=== PATIENT | female | born 1975 | race Caucasian/White ===

== ENCOUNTER 2017-03-16 06:27 | Observation (INO) ==
[2017-03-16] MEDS ORDERED: CeFAZolin Syr 2,000MG/20 ML 2,000 MG/20 ML SYRINGE IVPB ONE (07:03)
--- NOTE | 2017-03-16 07:03 | Anesthesia Evaluation PreOp ---
Date of Encounter: 03/16/17 Time of Encounter: 07:00 - Past History Planned Operation: LAVH Cardiac History: Denies any Significant Hx, Hyperlipidemia Pulmonary History: Denies Any Significant HX ANTIQUE REFINISHER History: Denies Any Significant HX Other Medical History: GERD, Other (IBS, endometriosis) Anesthesia History: No Prior Anesthetic Complications, Past Anesthesia (tubal, laparoscopy, tonsillectomy, nasal sx) : No Test: Negative (03/11/2107) Alcohol Use: none Drug use: none Medications and Allergies Diclofenac Potassium 50 mg PO Q8H 03/29/15 [History] Krill Oil 1,000 mg PO DAILY 03/29/15 [History] Rosuvastatin [Crestor] 40 mg PO QPM 03/29/15 [History] 3 Allergy/AdvReac Type Severity Reaction Status Date / Time No Known Allergies Allergy Verified 03/11/17 15:35 - Meds/Allergy Pre-op Review Medications Reviewed: Yes Allergies Reviewed: Yes Beta Blockers on Current Med List: No Anesthesia Results - Labs Laboratory Tests 03/26/15 03/11/17 03/11/17 15:15 15:43 15:43 WBC 8.9 Hgb 13.2 Hct 39.4 Plt Count 285 BUN 15 Creatinine 0.89 Serum , Qual 03/11/17 15:43 WBC Hgb Hct Plt Count BUN Creatinine Serum , Qual Negative Anesthesia Exam O2 Sat Height 1.61 m Height 1.61 m Weight 83.915 kg Weight 83.915 kg O2 Sat by Pulse Oximetry 95 Vital Signs Temp Pulse Resp BP Pulse Ox 98.0 F 67 18 121/83 95 03/16/17 06:49 03/16/17 06:49 03/16/17 06:49 03/16/17 06:49 03/16/17 06:49 Height: 5'3'' Weight: 185# NPO (# of Hours): > 8 hrs Pain Scale: 0 Pain Scale Used: Numeric (1 - 10) - HEENT Pupil (Motor): Pupils equal, EOMI Mallampati: I Teeth: Normal Oral Opening: Greater than 3 - ANTIQUE REFINISHER LOC: Oriented ANTIQUE REFINISHER Motor: Normal RUE, Normal LUE, Normal RLE, Normal LLE, Normal Face ANTIQUE REFINISHER Sensory: Normal: RUE, LUE, RLE, LLE, Face - Cardiac Rhythm: Regular Murmur: None JVD: No Carotid Bruit: No - Pulmonary Breath Sounds: bilateral Clear Respiratory Effort: Symmetrical Anesthesia Assess/Plan ASA Score: 2 Modified [place] Scale for Level of Consciousness: Cooperative, oriented, and tranquil Anesthetic Plan: General, Regional (Spoinal for post op pain control) Autologous Blood: Yes Monitoring Plan: Standard Monitors Recovery Plan: PACU
[2017-03-16] MEDS ORDERED: Lidocaine -MPF 2% 2 ML VIAL ONE (07:12)
[2017-03-16] MEDS ORDERED: *HR* Propofol 200 MG/20 ML VIAL IVP ONE (07:12)
[2017-03-16] MEDS ORDERED: *HR* FentaNYL (PF) 100 MCG/2 ML VIAL ONE (07:12)
[2017-03-16] MEDS ORDERED: *HR* Midazolam HCl 2 MG/2 ML VIAL ONE (07:12)
[2017-03-16] MEDS ORDERED: *HR* Rocuronium Bromide 50 MG/5 ML VIAL ONE (07:12)
[2017-03-16] MEDS ORDERED: Plasma-Lyte A (PH 7.4) 1,000 ML IVC SCH (07:15)
--- NOTE | 2017-03-16 07:29 | History & Physical Report ---
Date of Encounter: 03/16/17 Time of Encounter: 07:28 24 Hour HP Update - Instructions Instructions: If the History and Physical is less than 30 days old and was completed prior to A.M. admission and or procedure and has NOT been updated on calendar day of procedure please complete this update prior to performing procedure. - Update Patient reports changes in Medical Condition: No Changes in examination, assessment, or condition: No Changes in Medication: No Preop tests/diagnostics Reviewed: Yes Surgery Remains Indicated: Yes Consent for Planned Operative Procedure(s) Verified: Yes - Pre-Operative Checklist Preoperative Checklist Indicated: Yes Prophylactic Antibiotic Ordered: Yes Home Medications Include Beta Cori: No Beta Cori Taken Today (Day of Surgery): No Beta Cori Taken Yesterday (Day Prior to Surgery): No Is VTE Prophylaxis Indicated?: Yes - Attending Attestation marielos quintero md [facility]
[2017-03-16] MEDS ORDERED: Bupivacaine-MPF 0.25% 10 ML VIAL ONE (07:31)
[2017-03-16] MEDS ORDERED: *HR* Belladonna Alkaloids/Opium 30 MG RECTAL SUPPOSITORY RC ONE (07:32)
[2017-03-16] MEDS ORDERED: *HR* Morphine Sulfate/PF 10 MG/10 ML AMPUL ONE (07:34)
[2017-03-16] MEDS ORDERED: Dexamethasone 4 MG/ML VIAL ONE (08:07)
[2017-03-16] MEDS ORDERED: Ondansetron 4 MG/2 ML VIAL ONE (08:07)
[2017-03-16] MEDS ORDERED: Ondansetron 4 MG/2 ML VIAL IVP ONE (08:12)
[2017-03-16] MEDS ORDERED: *HR* HYDROmorphone (PF) 1 MG/ML SYRINGE IVP PRN (08:12)
[2017-03-16] MEDS ORDERED: *HR* Promethazine 25 MG/ML VIAL IVP PRN (08:12)
[2017-03-16] MEDS ORDERED: Ketorolac 30 MG/ML VIAL ONE (09:39)
--- NOTE | 2017-03-16 10:15 | OB/GYN Procedure Note ---
Hysterectomy - Diagnosis Date of procedure: 03/16/17 Hysterectomy pre-op: chronic pelvic pain (Adenomyosis) Post-op diagnosis: same - Procedure Hysterectomy procedure: lap assisted vaginal hysterectomy, bilateral salpingectomy Surgeon: Santino Martinez Community Recreation Programmer: Debra Baron Anesthesia provider: Tutu Plummer Anesthesia Type: General (Intrathecal) Estimated blood loss (cc): 250 Complications: none Fluids: crystalloid Urine output (cc): 500 Specimens: uterus, cervix, right fallopian tube, left fallopian tube Findings: The uterus was enlarged 6-8 weeks size consistent with adenomyosis. No endometriosis was noted on the ovaries Disposition: PACU Narrative: Patient was taken to the operating room. After satisfactory anesthesia was achieved patient placed in dorsolithotomy position, Younger catheter inserted, and prepped and draped in usual manner. After appropriate timeout, anterior lip cervix was grasped with single-tooth tenaculum. Perry cannula was inserted. Pneumoperitoneum was created. Trochars were inserted. Fallopian tubes were resected and sent to pathology for analysis. Round ligaments were coagulated both sides and cut. Cardinal ligaments coagulate both sides and cut. Uterine arteries were coagulated on both sides. The bladder flap was created anteriorly. We then went below. Cervical mucosa was injected with Marcaine solution. Cervical mucosa was incised circumferentially. Posterior cul-de-sac was entered. Uterosacral ligaments were clamped cut suture-ligated with a 0 Monocryl. The remainder of the cardinal ligaments were coagulated on both sides and cut. Anterior cul-de-sac was entered. Uterus and cervix were removed and sent to pathology for analysis. Posterior cuff was closed with 0 Monocryl left and right right left exiting at the uterosacral ligaments. After assurance of hemostasis, the vaginal cuff was reapproximated with a 0 Monocryl. We then went above. The cul-de-sac and sidewalls were thoroughly irrigated. Ureters noted coursing along the pelvic sidewall on the right side. There was some oozing from the bladder pillar on the left side. This area was controlled with bipolar device and Surgi-neva was placed. After assurance of hemostasis, the gas and trochars were removed. Incisions were closed with 3-0 Monocryl in a subcuticular manner. Sterile dressing was applied. The cuff was inspected and no bleeding was appreciated. The catheter was removed. Patient did well and was taken to recovery in satisfactory condition. Counts were correct.
--- NOTE | 2017-03-16 10:57 | Anesthesia Evaluation Post Op ---
Date of Encounter: 03/16/17 Time of Encounter: 10:50 - Lungs Lungs: Clear Ascult./Percussion - Airway Airway: Non-obstructed - Cardiovascular Regular Rate, Baseline Rhythm - Mental Status Mental Status: Alert & Oriented, Answers Appropriately - Pain Pain Scale: 3 Pain Scale used: Numeric (1 - 10) - Nausea Vomiting Nausea Vomiting: Not Present - Hydration Hydration: Tolerates oral liquids, Ice chips, Has not voided Notes: 03/16/17 10:56 continuos pulse ox monitoring - Discharge PostOp Status: Transfer Patient to floor
[2017-03-16] MEDS ORDERED: Naloxone 0.4 MG/ML INJ IVP PRN (12:57)
[2017-03-16] MEDS ORDERED: Ondansetron 4 MG/2 ML VIAL IVP PRN (12:57)
[2017-03-16] MEDS ORDERED: *HR* HYDROcodone/Acet 5/325 mg TABLET PO PRN (12:57)
[2017-03-16] MEDS ORDERED: Sennosides 8.6 MG TABLET PO PRN (12:57)
[2017-03-16] MEDS ORDERED: *HR* OxyCODONE/APAP 5/325 TABLET PO PRN (12:57)
[2017-03-16] MEDS ORDERED: Ringers Solution, Lactated 1,000 ML ONE (16:02)
[2017-03-16] MEDS: Ondansetron 4 MG/2 ML VIAL IVP SCH (19:58)
[2017-03-17] MEDS ORDERED: Ringers Solution, Lactated 1,000 ML ONE (02:41)
[2017-03-17] MEDS: Ondansetron 4 MG/2 ML VIAL IVP SCH (02:47)
[2017-03-17] MEDS ORDERED: *HR* HYDROmorphone (PF) 1 MG/ML SYRINGE IVP PRN (03:06)
[2017-03-17] MEDS ORDERED: *HR* Promethazine 25 MG/ML VIAL IVP ONE (03:06)
[2017-03-17] MEDS ORDERED: Scopolamine Patch 1.5 MG PATCH.TD72 TD ONE (03:08)
[2017-03-17] MEDS: Ketorolac 30 MG/ML VIAL IVP SCH ×3 (03:28→20:51)
[2017-03-17 04:42] LABS: Basophils % 0.1 %; Hematocrit 36.9 % (35.3-44.9); Immature Granulocytes % 0.7 % (0-4); Lymphocytes # 1.5 K/mcL (0.6-4.6); Lymphocytes % 9.8 %; Mean Corpuscular HGB Conc 32.5 g/dL (31.6-35.5); Mean Corpuscular Hemoglobin 28.2 pg (28.0-33.3); Mean Corpuscular Volume 86.8 fL (83.0-100.0); Mean Platelet Volume 9.3 fL (9.4-12.4); Monocytes # 0.9 K/mcL (0.0-1.3); Monocytes % 6.3 %; Neutrophils # 12.3 K/mcL (1.6-8.9); Platelet Count 262 K/mcL (140-400); Red Blood Count 4.25 M/mcL (3.82-4.97); Red Cell Distribution Width 13.2 % (11.5-14.5); Segmented Neutrophils % 83.1 %
[2017-03-17 05:00] LABS: eGFR For African Americans > 60 (> 60); eGFR For Non-African Americans > 60 (> 60)
[2017-03-17] MEDS ORDERED: Ringers Solution, Lactated 500 ML IVC ONE (08:15)
--- NOTE | 2017-03-17 08:20 | OB/GYN Progress Note ---
Date of Encounter: 03/17/17 Time of Encounter: 08:15 - Assessment and Plan (1) Uterus, adenomyosis Current Visit: Yes Status: Resolved (2) Vomiting Current Visit: Yes Status: Acute Patient has been vomiting overnight . Better with scolpolomine patch . Bowel sounds dimished . Labs ok . Will fliud bolus / recheck labs Qualifiers: Vomiting type: cyclical vomiting Vomiting Intractability: non-intractable Nausea presence: with nausea Qualified Code(s): G43.A0 - Cyclical vomiting, not intractable Subjective - Subjective Patient reports: voiding normally, pain well controlled, appetite poor, nauseated Objective - Vital Signs Latest vital signs: Vital Signs Temp Pulse Resp BP Pulse Ox 03/17/17 07:30 99.0 F 83 16 108/69 95 03/17/17 03:05 98.4 F 88 16 145/96 94 03/16/17 23:28 98.2 F 99 14 123/77 94 03/16/17 19:45 98.4 F 97 14 129/84 90 03/16/17 14:30 98.0 F 89 16 127/89 94 03/16/17 13:15 97.9 F 82 16 148/77 94 03/16/17 12:15 97.6 F 81 16 128/84 92 03/16/17 11:45 97.6 F 86 16 114/73 92 03/16/17 11:15 98.0 F 87 14 117/77 93 03/16/17 11:01 99.6 F 85 17 124/80 94 03/16/17 10:51 99.6 F 79 16 126/80 96 03/16/17 10:41 92 16 120/79 96 03/16/17 10:31 82 16 120/80 94 03/16/17 10:21 98.4 F 88 16 143/90 97 Intake and Output 03/16/17 03/17/17 03/17/17 23:59 07:59 15:59 Intake Total 200 / 200 Output Total 950 / 950 700 / 700 Balance -950 / -950 -500 / -500 Intake: Oral 200 / 200 Output: Urine 300 / 300 600 / 600 Emesis 650 / 650 100 / 100 Other: Weight 83.915 kg Patient Weight 03/17/17 23:59 Weight 83.915 kg - I&O's I&O's: Intake & Output 03/14/17 03/15/17 03/16/17 03/17/17 23:59 23:59 23:59 23:59 Intake Total 200 / 200 Output Total 2150 / 2150 700 / 700 Balance -2130 / -2130 -500 / -500 Weight 82.6 kg 83.915 kg - Exam Lungs: bilateral: normal Chest: Normal S1, Normal S2 Extremities: Present: normal Abdomen: Present: normal appearance, soft Incision OB: Present: normal, intact - Labs Labs: Abnormal lab results WBC 14.8 K/mcL (4.3-11.1) H D 03/17/17 04:08 MPV 9.3 fL (9.4-12.4) L 03/17/17 04:08 Neutrophils # 12.3 K/mcL (1.6-8.9) H 03/17/17 04:08 Consult Discharge Plan - Plan Referrals: NONE,PCP [Primary Care Provider] -
[2017-03-17] MEDS: Ringers Solution, Lactated 1,000 ML IVC SCH ×3 (08:26→21:13)
[2017-03-17 08:38] LABS: Basophils % 0.1 %; Hematocrit 33.3 % (35.3-44.9); Hemoglobin 11.1 g/dL (11.5-15.4); Immature Granulocytes % 0.8 % (0-4); Lymphocytes % 14.8 %; Mean Corpuscular HGB Conc 33.3 g/dL (31.6-35.5); Mean Corpuscular Hemoglobin 28.5 pg (28.0-33.3); Mean Corpuscular Volume 85.4 fL (83.0-100.0); Mean Platelet Volume 9.2 fL (9.4-12.4); Platelet Count 238 K/mcL (140-400); Red Cell Distribution Width 13.1 % (11.5-14.5); Segmented Neutrophils % 77.3 %
[2017-03-17 08:39] LABS: Lymphocytes # 2.1 K/mcL (0.6-4.6); Neutrophils # 11.2 K/mcL (1.6-8.9)
[2017-03-17 08:55] LABS: Potassium 4.1 mEq/L (3.5-4.5)
--- NOTE | 2017-03-17 15:21 | Event Note ---
Date of Encounter: 03/17/17 Time of Encounter: 15:16 Pt reports that she is very sleepy. Her nausea is improving. She was able to keep some broth and crackers down. She denies being in much pain. She reports that she is able to void, but no flatus yet. Denies other symptoms. EXAM: Lungs: CTAB Heart: RRR, S1 & S2 Abd: Soft, non-tender, non-distended, BSx4. Incision clean, dry, intact. PLAN: Admit as inpatient and continue to monitor Advance diet as tolerated, encourage ambulation Bladder scan if continued poor voiding Check labs in AM
[2017-03-18 04:38] LABS: Basophils % 0.1 %; Eosinophils % 0.2 %; Hematocrit 32.7 % (35.3-44.9); Hemoglobin 10.7 g/dL (11.5-15.4); Immature Granulocytes % 0.6 % (0-4); Lymphocytes # 3.4 K/mcL (0.6-4.6); Lymphocytes % 32.1 %; Mean Corpuscular HGB Conc 32.7 g/dL (31.6-35.5); Mean Corpuscular Hemoglobin 28.5 pg (28.0-33.3); Mean Platelet Volume 9.1 fL (9.4-12.4); Monocytes # 0.8 K/mcL (0.0-1.3); Monocytes % 7.4 %; Neutrophils # 6.3 K/mcL (1.6-8.9); Platelet Count 221 K/mcL (140-400); Red Blood Count 3.76 M/mcL (3.82-4.97); Red Cell Distribution Width 13.3 % (11.5-14.5); Segmented Neutrophils % 59.6 %
[2017-03-18 05:11] LABS: BUN/Creatinine Ratio 17 (6-26); Blood Urea Nitrogen 10 mg/dL (6-20); Carbon Dioxide 25 mEq/L (23-29); Chloride 109 mEq/L (98-107); Glucose 95 mg/dL (70-105); Osmolality,Calculated 289 (280-300); Potassium 3.4 mEq/L (3.5-5.1); Sodium 140 mEq/L (136-145); eGFR For African Americans > 60 (> 60); eGFR For Non-African Americans > 60 (> 60)
--- NOTE | 2017-03-18 08:16 | Discharge Summary ---
Date of Encounter: 03/18/17 Time of Encounter: 08:16 - Discharge Diagnosis (1) Uterus, adenomyosis Priority: Primary Status: Resolved Comments: POD#2 s/p lap assisted vaginal hysterectomy, bilateral salpingectomy Pain controlled, tolerating po intake, voiding well No flatus yet, but bowel sounds are present Pt may be discharged home (2) Vomiting Priority: Secondary Status: Acute Comments: N/V have improved compared to yesterday morning Continue to encourage po intake Qualifiers: Vomiting type: cyclical vomiting Vomiting Intractability: non-intractable Nausea presence: with nausea Qualified Code(s): G43.A0 - Cyclical vomiting, not intractable - Discharge Medications Prescriptions: OxyCODONE/APAP 5/325 [Percocet 5/325 MG] 1 each PO Q4HR PRN #20 tablet PRN Reason: Pain Ibuprofen [Motrin] 600 mg PO Q8HR PRN #60 tab PRN Reason: Pain Docusate [Colace] 100 mg PO BID #60 capsule Home Medications: Diclofenac Potassium 50 mg PO Q8H 03/29/15 [History] Krill Oil 1,000 mg PO DAILY 03/29/15 [History] Rosuvastatin [Crestor] 40 mg PO QPM 03/29/15 [History] Docusate [Colace] 100 mg PO BID #60 capsule 03/18/17 [Rx] Ibuprofen [Motrin] 600 mg PO Q8HR PRN #60 tab 03/18/17 [Rx] OxyCODONE/APAP 5/325 [Percocet 5/325 MG] 1 each PO Q4HR PRN #20 tablet 03/18/17 [Rx] Allergies/Adverse Reactions: 3 Allergy/AdvReac Type Severity Reaction Status Date / Time No Known Allergies Allergy Verified 03/11/17 15:35 Data Procedures and tests throughout hospitalization: Laboratory Tests 03/17/17 03/17/17 03/17/17 04:08 04:08 08:31 WBC 14.8 H D 14.4 H RBC 4.25 3.90 Hgb 12.0 11.1 L Hct 36.9 33.3 L MCV 86.8 85.4 MCH 28.2 28.5 MCHC 32.5 33.3 RDW 13.2 13.1 Plt Count 262 238 MPV 9.3 L 9.2 L Immature Gran % 0.7 0.8 Seg Neutrophils % 83.1 77.3 Lymphocytes % 9.8 14.8 Monocytes % 6.3 7.0 Eosinophils % 0.0 0.0 Basophils % 0.1 0.1 Neutrophils # 12.3 H 11.2 H Lymphocytes # 1.5 2.1 Monocytes # 0.9 1.0 Eosinophils # 0.0 0.0 Basophils # 0.0 0.0 Sodium Potassium Chloride Carbon Dioxide BUN Creatinine 0.66 Est GFR ( Amer) > 60 Est GFR (Non-Af Amer) > 60 BUN/Creatinine Ratio Glucose Calculated Osmolality Calcium 03/17/17 03/18/17 03/18/17 08:31 04:05 04:05 WBC 10.6 RBC 3.76 L Hgb 10.7 L Hct 32.7 L MCV 87.0 MCH 28.5 MCHC 32.7 RDW 13.3 Plt Count 221 MPV 9.1 L Immature Gran % 0.6 Seg Neutrophils % 59.6 Lymphocytes % 32.1 Monocytes % 7.4 Eosinophils % 0.2 Basophils % 0.1 Neutrophils # 6.3 Lymphocytes # 3.4 Monocytes # 0.8 Eosinophils # 0.0 Basophils # 0.0 Sodium 137 140 Potassium 4.1 3.4 L Chloride 104 109 H Carbon Dioxide 24 25 BUN 10 Creatinine 0.59 L Est GFR ( Amer) > 60 Est GFR (Non-Af Amer) > 60 BUN/Creatinine Ratio 17 Glucose 95 Calculated Osmolality 289 Calcium 8.0 L Labs on day of discharge: Labs from last 24 hours 03/18/17 03/18/17 03/17/17 04:05 04:05 08:31 WBC 10.6 RBC 3.76 L Hgb 10.7 L Hct 32.7 L MCV 87.0 MCH 28.5 MCHC 32.7 RDW 13.3 Plt Count 221 MPV 9.1 L Immature Gran % 0.6 Seg Neutrophils % 59.6 Lymphocytes % 32.1 Monocytes % 7.4 Eosinophils % 0.2 Basophils % 0.1 Neutrophils # 6.3 Lymphocytes # 3.4 Monocytes # 0.8 Eosinophils # 0.0 Basophils # 0.0 Sodium 140 137 Potassium 3.4 L 4.1 Chloride 109 H 104 Carbon Dioxide 25 24 BUN 10 Creatinine 0.59 L Est GFR ( Amer) > 60 Est GFR (Non-Af Amer) > 60 BUN/Creatinine Ratio 17 Glucose 95 Calculated Osmolality 289 Calcium 8.0 L 03/17/17 08:31 WBC 14.4 H RBC 3.90 Hgb 11.1 L Hct 33.3 L MCV 85.4 MCH 28.5 MCHC 33.3 RDW 13.1 Plt Count 238 MPV 9.2 L Immature Gran % 0.8 Seg Neutrophils % 77.3 Lymphocytes % 14.8 Monocytes % 7.0 Eosinophils % 0.0 Basophils % 0.1 Neutrophils # 11.2 H Lymphocytes # 2.1 Monocytes # 1.0 Eosinophils # 0.0 Basophils # 0.0 Sodium Potassium Chloride Carbon Dioxide BUN Creatinine Est GFR ( Amer) Est GFR (Non-Af Amer) BUN/Creatinine Ratio Glucose Calculated Osmolality Calcium Primary care physician: PCP RADHA Discharging clinician: Aleksandr Baca Anticipated date of discharge: 03/18/17 - Patient Status Disposition: Home, Self-Care Condition: Good Functional capacity at discharge: independent ambulation Overall status at discharge: patient is progressing back to baseline - Discharge Instructions Follow Up With: RADHA,PCP [Primary Care Provider] - Santino Martinez MD [Partnered Physician] - Additional Instructions: Take your medications as prescribed Drink plenty of fluids Continue to increase food intake Follow-up with Dr. Martinez in 2 weeks Return to the hospital if your get a fever or have problems with your incision - Diet and Activity Activity: increase activity as tolerated Diet: advance to your usual diet Hospital Course [employer] Reason for admission: other (adenomyosis) Discharge diagnosis: other (adenomyosis s/p lap assisted vaginal hysterectomy, bilateral salpingectomy) Hospital course: - Diagnosis Date of procedure: 03/16/17 Hysterectomy pre-op: chronic pelvic pain (Adenomyosis) Post-op diagnosis: same - Procedure Hysterectomy procedure: lap assisted vaginal hysterectomy, bilateral salpingectomy Surgeon: Santino Martinez Field Crop Farm Worker: Debra Baron Anesthesia provider: Tutu Plummer Anesthesia Type: General (Intrathecal) Estimated blood loss (cc): 250 Complications: none Fluids: crystalloid Urine output (cc): 500 Specimens: uterus, cervix, right fallopian tube, left fallopian tube Findings: The uterus was enlarged 6-8 weeks size consistent with adenomyosis. No endometriosis was noted on the ovaries. The patient was experiencing post-op nausea/vomiting and headaches. She stayed an extra day in the hospital and her symptoms improved. She is able to increase her po intake, voiding well. Still not passing flatus yet, but bowel sounds are present. Pain is controlled. She is to be discharged home. Time Attestation: Total time spent providing and/or coordinating discharge services: Exam - Constitutional Vitals: Temp Pulse Resp BP Pulse Ox 99.1 F 73 14 120/81 95 03/18/17 04:05 03/18/17 04:05 03/18/17 04:05 03/18/17 04:05 03/18/17 04:05 General appearance IM: A&O X 3, no acute distress - Respiratory Respiratory exam: Present: CTAB - Cardiovascular Cardiovascular exam IM: Present: RRR, +S1, +S2 - GI/Abdominal GI/Abdominal exam IM: normal bowel sounds, soft, no peritoneal signs Incision: normal, dry, intact - Extremities Exam Extremities exam IM: Present: normal capillary refill, normal inspection, radial pulses palpable and symmetrical. Absent: tenderness - Neurological Exam Neurological exam: alert, no focal deficits - VTE Reasons for not Prescribing Prophylaxis: Treatment not Indicated - Low risk for VTE Documentation of Mechanical Device: Intermittent pneumatic compression device
[2017-03-18 09:31] VITALS: BP 124/79
== END 2017-03-18 11:25 | disposition home or self-care (01) ==
LOC: SAMDAY 06:27 → 1NENUOBS 06:27 → SAMDAY 03-18 11:25 → 1NENUOBS 03-18 13:46
PROVIDERS: ADMIT Obstetrics & Gynecology; ATTEND Obstetrics & Gynecology
PROC: GYNLAVH (ICD-10-PCS; 2017-03-16 07:45)